=== PATIENT | female | born 2000 | race Two or more races ===

== ENCOUNTER 2021-02-11 07:43 | Emergency (ER) | payer MEDICAID ==
[~2021-02-11] VITALS: Ht 160 cm; Wt 81.8 kg
[~2021-02-11 07:43] MED LIST: NO HOME MEDS
[2021-02-11 07:57] VITALS: BP 133/87
== END 2021-02-11 09:27 | disposition home or self-care (01) ==
LOC: ER 07:44
DX: R50.9 Fever, unspecified (principal); Z20.822 Contact with and (suspected) exposure to COVID-19; R19.7 Diarrhea, unspecified; J02.9 Acute pharyngitis, unspecified; R11.0 Nausea; Z88.1 Allergy status to other antibiotic agents
CPT/HCPCS: 87635; 99283; C9803; 99282